=== PATIENT | male | born 1975 | race Caucasian/White ===

== ENCOUNTER 2021-03-30 09:30 | Emergency (ER) | payer OTHER | END 2021-03-30 10:53 | disposition home or self-care (01) | LOC: ER1 09:30 | DX: S61.011A Laceration without foreign body of right thumb without damage to nail, initial encounter (principal); E11.9 Type 2 diabetes mellitus without complications; W26.8XXA Contact with other sharp object(s), not elsewhere classified, initial encounter; Z23 Encounter for immunization | CPT/HCPCS: 12002; 90471; 90715; 99282 ==

== ENCOUNTER → 2021-04-01 | Outpatient (CLI) | payer BC | LOC: US 13:08 | DX: R80.9 Proteinuria, unspecified (principal) ==